=== PATIENT | female | born 2000 | race Caucasian/White ===

== ENCOUNTER 2022-06-14 19:03 | Emergency (ER) | payer BC, SELFPAY ==
--- NOTE | ~2022-06-14 | CT_ITS ---
EXAMINATION: CT CERVICAL SPINE WITHOUT CONTRAST CLINICAL INFORMATION: Midline tenderness status post dancing injury COMPARISON: None available. TECHNIQUE: Noncontrast CT of the cervical spine was performed. Multiplanar reformations were generated and reviewed. This CT examination was performed using dose optimization techniques as appropriate, variously including the following: *Automated exposure control *Adjustment of mA and/or kV according to patient size (this includes techniques or standardized protocols for targeted exams where dose is matched to indication/reason for exam; i.e. extremities or head) *Use of iterative reconstruction technique DLP: 263 mGy-cm FINDINGS: Normal vertebral body heights. No evidence of acute fracture. Cervical straightening which may be related to positioning/muscle spasm. No significant spondylolisthesis. Normal alignment at the craniocervical junction. No suspicious lytic or sclerotic osseous lesion. No prevertebral soft tissue swelling or edema. The visualized cervical soft tissues are within normal limits. The lung apices are clear. CT/CT cervical spine wo IV con IMPRESSION: No acute fracture or traumatic malalignment of the cervical spine.
[2022-06-14 19:34] VITALS: BP 121/78; PULSE 97; RESP 16; TEMP 36.6; O2SAT 98
--- NOTE | 2022-06-14 19:37 | ED_ITS ---
HPI - Neck Pain/Injury General Chief Complaint: Neck Pain/Injury <FRANCE Neville Last Filed: 06/14/22 19:39> Stated Complaint: neck inj <FRANCE Neville Last Filed: 06/14/22 19:39> Time Seen by Provider: 06/14/22 21:41 <FRANCE Neville Last Filed: 06/14/22 19:39> Source: patient <FRANCE Talley Last Filed: 06/14/22 22:44> Mode of arrival: ambulatory <FRANCE Talley Last Filed: 06/14/22 22:44> Limitations: no limitations <FRANCE Talley Last Filed: 06/14/22 22:44> History of Present Illness HPI Narrative: This is a 21-year-old female without significant medical history presenting to the emergency department for evaluation of midline cervical spine neck pain, patient reports this started earlier today around 5 pmat dance. Patient tells me she was dancing, suddenly moved her head to 1 side, she heard a weird noise in her neck and since then she has been feeling like she has a stiff neck and is having pain to the middle/spinal region, pain is worse with movement better at rest. Some a/c nausea No blunt trauma. Patient denies numbness, tingling, headache, vision changes, dizziness, weakness. <FRANCE Talley Last Filed: 06/14/22 22:44> Related Data Home Medications: Previous Rx's Medication Instructions Recorded cyclobenzaprine 10 mg tablet 10 mg PO BEDTIME PRN muscle spasm 06/14/22 #7 tabs ketorolac 10 mg tablet 10 mg PO TID PRN pain 5 days #15 06/14/22 tabs lidocaine 5 % topical patch 1 patch topical DAILY PRN pain #15 06/14/22 ea <FRANCE Neville Last Filed: 06/14/22 19:39> Allergies/Adverse Reactions: Allergies Allergy/AdvReac Type Severity Reaction Status Date / Time No Known Allergies Allergy Verified 06/14/22 19:38 <FRANCE Neville Last Filed: 06/14/22 19:39> Review of Systems Review of Systems: Constitutional : No Weight loss, No Fever, No Chills, No Fatigue, No Malaise ENT/Mouth : No sore throat, No Rhinorrhea Eyes: No Eye Pain, No Swelling, No Redness Cardiovascular : No Chest Pain, No SOB, No Dyspnea on Exertion, No Orthopnea, No Edema, No Palpitations Respiratory : No Cough, No Sputum, No Wheezing Gastrointestinal : + Nausea, No Vomiting, No Diarrhea, No Constipation, No abdominal Pain, No Hematochezia, No Melena Genitourinary : No Dysuria, No Urinary Frequency, No Hematuria, Musculoskeletal : No joint pain, No Myalgias, No Joint Swelling, + neck pain Skin : No Skin Lesions, No rash Neuro : No Weakness, No Numbness, No Dizziness, No Headache Psych : No Anxiety/Panic, No Depression All other systems reviewed and are negative <FRANCE Talley - Last Filed: 06/14/22 22:44> Yes all other systems are reviewed and are negative <FRANCE Talley - Last Filed: 06/14/22 22:44> [facility] Past Medical History Attestation statement: The following information was validated with the patient. <FRANCE Talley - Last Filed: 06/14/22 22:44> Source: old records reviewed and nursing notes reviewed <FRANCE Talley - Last Filed: 06/14/22 22:44> Social History Social History: Social History Advance Directives: No Advance Directives Information Provided: Yes <FRANCE Neville - Last Filed: 06/14/22 19:39> Physical Exam Vital Signs: Vital Signs: Last Vital Signs Temp 98.2 F 06/14/22 21:34 Pulse 81 06/14/22 21:34 Resp 17 06/14/22 21:34 BP 115/71 06/14/22 21:34 Pulse Ox 97 06/14/22 21:34 O2 Del Method Room Air 06/14/22 21:34 BMI result Body Mass Index 20.0 <FRANCE Neville - Last Filed: 06/14/22 19:39> Vital Signs: Last Vital Signs Temp 98.2 F 06/14/22 21:34 Pulse 81 06/14/22 21:34 Resp 17 06/14/22 21:34 BP 115/71 06/14/22 21:34 Pulse Ox 97 06/14/22 21:34 O2 Del Method Room Air 06/14/22 21:34 BMI result Body Mass Index 20.0 Vital signs stable <FRANCE Talley - Last Filed: 06/14/22 22:44> Appearance: Alert.? Oriented X3.? No acute distress.? Head: Normocephalic, atraumatic, no step-offs or deformities Eyes: Pupils equal, round and reactive to light.? Extraocular movements intact and pain-free ENT: Pharynx normal.? Neck: Normal inspection.? Patient reports discomfort with palpation around C6, C7 between spinous process. Some associated paraspinous tenderness in the cervical region bilaterally. Pain with range of motion of neck. Patient tells me it feels like she has stiff neck CVS: Normal heart rate and rhythm.? Pulses normal.? Respiratory: No respiratory distress.? Breath sounds normal.? Abdomen: Soft and nontender.? Skin: Skin warm and dry.? Normal skin color.? Normal skin turgor.? Extremities: No lower extremity edema.? No calf ttp. 5/5 strength to bilateral upper and lower extremities Neuro: Oriented X 3.? No motor deficit.? No sensory deficit. CN 2-12 intact . Normal hand mental health assistant bilaterally. Negative pronator drift. Normal sensation to bilateral upper extremities. Ambulatory with steady gait. Normal rapid alternating movements. <FRANCE Talley - Last Filed: 06/14/22 22:44> Course Course Course Narrative: RME - 21 yo otherwise healthy female presents to the ER for evaluation of a neck injury while at a dance class at about 5pm. She was dancing when she heard a pop in her cerivcal spine and had immediate pain. She has pain with any movement now and is nauseated. No radiation of pain. Has tenderness to C6-C7. Will get CT scan cerivcal spine. <FRANCE Neville - Last Filed: 06/14/22 19:39> Reevaluation(s) Reevaluation #1: CT of the cervical spine with no acute fracture or traumatic malalignment of the cervical spine. Will medicate with Toradol, cyclobenzaprine and Lidoderm patch. <FRANCE Talley - Last Filed: 06/14/22 22:44> Time: 22:04 <FRANCE Talley - Last Filed: 06/14/22 22:44> Reevaluation #2: Patient feeling slightly better will be discharged home with medications. Gave her a phone number to [facility]. Educated patient on diagnosis and treatment plan, answered all question, patient verbalizes understanding. At this time patient will be discharged home, advised to return with new or worsening symptoms. Educated on worrisome signs and symptoms and when to return. At this time I feel comfortable discharge home. <FRANCE Talley - Last Filed: 06/14/22 22:44> Time: 22:43 <FRANCE Talley - Last Filed: 06/14/22 22:44> Medications Administered Discontinued Medications Generic Name Dose Route Start Last Admin Trade Name Freq PRN Reason Stop Dose Admin Cyclobenzaprine HCl 10 mg 06/14/22 21:53 06/14/22 22:22 Cyclobenzaprine Hcl 10 Mg Tablet PO 06/14/22 21:54 10 mg ONCE ONE Administration Ketorolac Tromethamine 30 mg 06/14/22 21:53 06/14/22 22:22 Ketorolac Tromethamine 15 Mg/Ml Vial IM 06/14/22 21:54 30 mg ONCE ONE Administration Lidocaine 1 patch 06/14/22 21:53 06/14/22 22:22 Lidocaine 4 % Patch Adh..Patch TRANSDERMA 06/14/22 21:54 1 patch ONCE ONE Administration Protocol Morphine Sulfate 15 mg 06/14/22 22:06 06/14/22 22:22 Morphine Sulfate Immed Release 15 Mg Tablet PO 06/14/22 22:07 15 mg ONCE ONE Administration Ondansetron HCl 4 mg 06/14/22 22:19 06/14/22 22:21 Ondansetron Odt 4 Mg Tab.Rapdis TRANSLINGU 06/14/22 22:20 4 mg ONCE ONE Administration <FRANCE Neville - Last Filed: 06/14/22 19:39> Medications Administered Discontinued Medications Generic Name Dose Route Start Last Admin Trade Name Freq PRN Reason Stop Dose Admin Cyclobenzaprine HCl 10 mg 06/14/22 21:53 06/14/22 22:22 Cyclobenzaprine Hcl 10 Mg Tablet PO 06/14/22 21:54 10 mg ONCE ONE Administration Ketorolac Tromethamine 30 mg 06/14/22 21:53 06/14/22 22:22 Ketorolac Tromethamine 15 Mg/Ml Vial IM 06/14/22 21:54 30 mg ONCE ONE Administration Lidocaine 1 patch 06/14/22 21:53 06/14/22 22:22 Lidocaine 4 % Patch Adh..Patch TRANSDERMA 06/14/22 21:54 1 patch ONCE ONE Administration Protocol Morphine Sulfate 15 mg 06/14/22 22:06 06/14/22 22:22 Morphine Sulfate Immed Release 15 Mg Tablet PO 06/14/22 22:07 15 mg ONCE ONE Administration Ondansetron HCl 4 mg 06/14/22 22:19 06/14/22 22:21 Ondansetron Odt 4 Mg Tab.Rapdis TRANSLINGU 06/14/22 22:20 4 mg ONCE ONE Administration <FRANCE Talley - Last Filed: 06/14/22 22:44> Medical Decision Making Medical Decision Making [facility] Narrative: 2200 21-year-old female presents with neck pain status post sudden movement during dance. Physical exam significant for Normal inspection.? Patient reports discomfort with palpation around C6, C7 between spinous process. Some associated paraspinous tenderness in the cervical region bilaterally. Pain with range of motion of neck. Patient tells me it feels like she has stiff neck Concerns for torticollis, cervical sprain/strain, cervical spasm. Unlikely acute fracture, dislocation no blunt trauma. Other differentials include herniated discs. No signs of cord compression. CT scan was obtained from triage. <FRANCE Talley Last Filed: 06/14/22 22:44> Differential Diagnosis Differential Diagnoses: The differential diagnosis associated with the presentation includes <FRANCE Talley Last Filed: 06/14/22 22:44> Concerns for torticollis, cervical sprain/strain, cervical spasm. Unlikely acute fracture, dislocation no blunt trauma. Other differentials include herniated discs. No signs of cord compression. <FRANCE Talley Last Filed: 06/14/22 22:44> Admission/Observation Consideration of admission/observation: Escalation of care including admission/observation considered <FRANCE Talley Last Filed: 06/14/22 22:44> Unlikely <FRANCE Talley - Last Filed: 06/14/22 22:44> Independent Interpretation I performed an independent interpretation of an: CT Scan (CT/CT cervical spine wo IV con IMPRESSION: No acute fracture or traumatic malalignment of the cervical spine. ) <FRANCE Talley - Last Filed: 06/14/22 22:44> Prescription Management I considered prescription management with: Pain Medication (Toradol) and Other (Cyclobenzaprine) <FRANCE Talley - Last Filed: 06/14/22 22:44> Core Measures AMI core measures followed: Yes <FRANCE Talley - Last Filed: 06/14/22 22:44> Measure exclusions: not indicated <FRANCE Talley Last Filed: 06/14/22 22:44> Critical Care Time Critical Care Time Critical Care Time: No <FRANCE Talley - Last Filed: 06/14/22 22:44> Discharge Plan Discharge Clinical Impression: Strain of neck muscle, Neck pain <FRANCE Neville - Last Filed: 06/14/22 19:39> Patient Disposition: Home, Self-Care <FRANCE Neville Last Filed: 06/14/22 19:39> Instructions: Muscle Strain (ED), Neck Pain (ED) <FRANCE Neville Last Filed: 06/14/22 19:39> Additional Instructions: Take your medications as prescribed. If you were prescribed antibiotics today, it is important that you take your medication to their entirety, do not skip any doses, do not finish them early. Follow-up with your primary care provider this week. Return to the emergency department with new or worsening symptoms. Such as fevers, chills, chest pain, shortness of breath, nausea, vomiting, dizziness, headache, vision changes, lethargy, visual disturbances, numbness, tingling, hand weakness In case of emergency call 911 Toradol has been sent to your pharmacy, you tolerated this well in the department. Please take this as prescribed do not take this with ibuprofen, or other NSAIDs, do not mix this with alcohol. Side effects of this medication including increased risk for bleeding and possible kidney injury. ?CT/CT cervical spine wo IV con IMPRESSION: ? No acute fracture or traumatic malalignment of the cervical spine. ? <FRANCE Neville - Last Filed: 06/14/22 19:39> Prescriptions: New cyclobenzaprine 10 mg tablet 10 mg PO BEDTIME PRN (Reason: muscle spasm) Qty: 7 0RF ketorolac 10 mg tablet 10 mg PO TID PRN (Reason: pain) 5 Days Qty: 15 0RF lidocaine 5 % adhesive patch,medicated 1 patch topical DAILY PRN (Reason: pain) Qty: 15 0RF Rx Instructions: leave on most painful area for up to 12 hrs <FRANCE Neville - Last Filed: 06/14/22 19:39> Referrals: [facility] [Provider Group] - 1 day Physician,Unknown J [Primary Care Provider] - 2 days <FRANCE Neville - Last Filed: 06/14/22 19:39> Stand Alone Forms: Work/School Release <FRANCE Neville - Last Filed: 06/14/22 19:39>
[2022-06-14 21:34] VITALS: BP 115/71; PULSE 81; RESP 17; TEMP 36.8; O2SAT 97
--- OUTSIDE RECORDS SUMMARY | 2022-06-14 22:07 | XMS_ITS | Summary of Care ---
Author Name Unknown Organization [facility] Address [address] [place] [address] Care Team Providers Care Creative Writing English Professor Name Role Phone TRACY FITZGERALD DO, I Primary Care Physician Encounter [facility]CSN [id number] Date(s): 06/29/20 - 06/29/20 [facility] [address] [place] [address] Encounter Diagnosis Pain in right hip(Final) - Pain in left hip(Final) - Discharge Disposition: Home Attending Physician: ANN FORRESTER MD Referring Physician: TRACY FTIZGERALD DO, I Allergies, Adverse Reactions, Alerts No Known Medication Allergies
--- OUTSIDE RECORDS SUMMARY | 2022-06-14 22:07 | XMS_ITS | Summary of Care ---
Author Name Unknown Organization [facility] Address [address] [place] [address]- Care Team Providers Care Revenue Liaison Name Role Phone KEM VALADEZ MD Primary Care Physician [phone] Encounter [facility]_CSN [id number] Date(s): 10/25/21 - 10/25/21 [facility] [address] [place] [address]- Discharge Disposition: Discharge Attending Physician: JOHAN AGUAYO PA-C Referring Physician: KEM VALADEZ MD Allergies, Adverse Reactions, Alerts No Known Medication Allergies Substance Reaction Severity Status Animal Dander Pruritis Nasal congestion Watery eyes Active Problem List Condition Effective Dates Status Health Status Inform ant Developmental dysplasia of r ight hip(Confirmed) Active Femoroacetabular impingement(Confirmed) Active
--- OUTSIDE RECORDS SUMMARY | 2022-06-14 22:07 | XMS_ITS | Summary of Care ---
Author Name Unknown Organization [facility] Address [address] [place] [address] Care Team Providers Care Chain Hooker Name Role Phone TRACY FITZGERALD DO, I Primary Care Physician ( [phone] Encounter [facility]_CSN [id number] Date(s): 05/20/20 - 05/20/20 [facility] [address] [place] [address] [facility] Encounter Diagnosis Pain in right hip(Final) - Pain in left hip(Final) - Discharge Disposition: Discharge Attending Physician: CALI DUENAS, KEM José Referring Physician: TRACY FITZGERALD DO, I Allergies, Adverse Reactions, Alerts No Known Medication Allergies
--- OUTSIDE RECORDS SUMMARY | 2022-06-14 22:07 | XMS_ITS | Summary of Care ---
Author Name Unknown Organization [facility] Address [address] [place] [address]- Care Team Providers Care User Experience Designer Name Role Phone TRACY FITZGERALD DO, I Primary Care Physician Encounter [facility] [id number] Date(s): 07/21/20 - 07/21/[address] [address]- Encounter Diagnosis Pain in right hip(Final) - Pain in left hip(Final) - Discharge Disposition: Home Attending Physician: MITZY DUENAS, ANN Randall Referring Physician: TRACY FITZGERALD DO, I Allergies, Adverse Reactions, Alerts No Known Medication Allergies Medications LORazepam 1 mg oral tablet Dose: 1 mg, Dose Amount: 1 tab, PO, 1time, Special Instructions: please take 1 tab prior to MRI andbring other tab to take as needed for anxiety, Dispense Quantity: 2 tab, Entered: 07/21/20 11:45:00EDT, [id number] Start Date: 07/21/20 Status: Ordered
--- OUTSIDE RECORDS SUMMARY | 2022-06-14 22:07 | XMS_ITS | Summary of Care ---
Author Name Unknown Organization [facility] Address [address] [place] [address]- Care Team Providers Care Cyber Systems Engineer Name Role Phone KEM VALADEZ MD Primary Care Physician Encounter [facility]_CSN [id number] Date(s): 05/18/21 - 05/18/[address] [address]- Encounter Diagnosis Other specified congenital deformities of hip(Final) - Pain in right hip(Final) - Pain in left hip(Final) - Other specified joint disorders, right hip(Final) - Discharge Disposition: Discharge Attending Physician: NATE MCCRACKEN MD Referring Physician: KEM VALADEZ MD Allergies, Adverse Reactions, Alerts No Known Medication Allergies Problem List Condition Effective Dates Status Health Status Inform ant Developmental dysplasia of r ight hip(Confirmed) Active Femoroacetabular impingement(Confirmed) Active
--- OUTSIDE RECORDS SUMMARY | 2022-06-14 22:08 | XMS_ITS | Summary of Care ---
Author Name Unknown Organization [facility] Address [address] [place] [address]- Care Team Providers Care Search Engine Marketing Strategist Name Role Phone KEM VALADEZ MD Primary Care Physician [phone] Encounter [facility] [id number] Date(s): 03/20/21 - 03/20/21 [facility] [address] [address]- Discharge Disposition: Discharge Attending Physician: JOHAN AGUAYO PA-C Referring Physician: KEM VALADEZ MD Allergies, Adverse Reactions, Alerts No Known Medication Allergies Medications triamcinolone 0.1% topical ointment Dose Amount: 1 appl, TOP, BID, Special Instructions: apply prn to affected areas (max use 2 week each month), Dispense Quantity: 15 g, Entered: 03/15/21 14:32:00 [id number] Start Date: 03/15/21 Status: Ordered Problem List Condition Effective Dates Status Health Status Inform ant Developmental dysplasia of r ight hip(Confirmed) Active Femoroacetabular impingement(Confirmed) Active
--- OUTSIDE RECORDS SUMMARY | 2022-06-14 22:08 | XMS_ITS | Summary of Care ---
Author Name Unknown Organization [facility] Address [address] [place] [address]- Care Team Providers Care Family Law Mediator Name Role Phone KEM VALADEZ MD Primary Care Physician Encounter [facility]_CSN [id number] Date(s): 11/10/21 - 11/10/[address] [address]- Discharge Disposition: Discharge Attending Physician: JOSSELINE BEEBE RD Referring Physician: KEM VALADEZ MD Allergies, Adverse Reactions, Alerts No Known Medication Allergies Substance Reaction Severity Status Animal Dander Pruritis Nasal congestion Watery eyes Active Problem List Condition Effective Dates Status Health Status Inform ant Developmental dysplasia of r ight hip(Confirmed) Active Femoroacetabular impingement(Confirmed) Active
--- OUTSIDE RECORDS SUMMARY | 2022-06-14 22:08 | XMS_ITS | Summary of Care ---
Author Name Unknown Organization [facility] Address [address] [place] [address]- Care Team Providers Care Cook Soup Name Role Phone TRACY FITZGERALD DO, I Primary Care Physician Encounter [facility]_CSN [id number] Date(s): 07/21/20 - 07/21/[address] [address]- Encounter Diagnosis Pain in right hip(Final) - Pain in left hip(Final) - Discharge Disposition: Home Attending Physician: CALI DUENAS, KEM José Referring Physician: TRACY FITZGERALD DO, I Allergies, Adverse Reactions, Alerts No Known Medication Allergies
--- OUTSIDE RECORDS SUMMARY | 2022-06-14 22:08 | XMS_ITS | Summary of Care ---
Author Name Unknown Organization [facility] Address [address] [place] [address]- Care Team Providers Care Packaging Associate Name Role Phone KEM VALADEZ MD Primary Care Physician Encounter [facility]_CSN [id number] Date(s): 01/29/22 - 01/29/[address] [address]- Discharge Disposition: Discharge Attending Physician: NATE MCCRACKEN MD Referring Physician: KEM VALADEZ MD Allergies, Adverse Reactions, Alerts No Known Medication Allergies Substance Reaction Severity Status Animal Dander Pruritis Nasal congestion Watery eyes Active Problem List Condition Effective Dates Status Health Status Inform ant Developmental dysplasia of r ight hip(Confirmed) Active Femoroacetabular impingement(Confirmed) Active
--- OUTSIDE RECORDS SUMMARY | 2022-06-14 22:08 | XMS_ITS | Summary of Care ---
Author Name Unknown Organization [facility] Address [address] [place] [address]- Care Team Providers Care Telephone Services Sales Representative Name Role Phone TRACY FITZGERALD DO, I Primary Care Physician Encounter [facility]N [id number] Date(s): 08/22/20 - 08/22/[address] [address]- Discharge Disposition: Discharge Attending Physician: MAINE DUENAS, PhD, SINHALA-ADDI Referring Physician: TRACY FITZGERALD DO, I Allergies, Adverse Reactions, Alerts No Known Medication Allergies
--- OUTSIDE RECORDS SUMMARY | 2022-06-14 22:08 | XMS_ITS | Summary of Care ---
Author Name Unknown Organization [facility] Address [address] [place] [address]- Care Team Providers Care Tribunal Member Name Role Phone TRACY FITZGERALD DO, I Primary Care Physician ( [phone] Encounter [facility]N [id number] Date(s): 10/12/20 - 10/12/20 [facility] [address] [place], [place] [address] Discharge Disposition: Discharge Attending Physician: KAYKAY DUENAS, NATE Johnson Referring Physician: TRACY FITZGERALD DO, I Allergies, Adverse Reactions, Alerts No Known Medication Allergies
--- OUTSIDE RECORDS SUMMARY | 2022-06-14 22:08 | XMS_ITS | Summary of Care ---
Author Name Unknown Organization [facility] Address [address] [address]- Care Team Providers Care Customs Compliance Manager Name Role Phone KEM VALADEZ MD Primary Care Physician Encounter [facility]_CSN [id number] Date(s): 02/21/22 - 01/30/22 [facility] [address] [place] [address]- Attending Physician: NATE MCCRACKEN MD Referring Physician: KEM VALADEZ MD Allergies, Adverse Reactions, Alerts No Known Medication Allergies Substance Reaction Severity Status Animal Dander Pruritis Nasal congestion Watery eyes Active Problem List Condition Effective Dates Status Health Status Inform ant Developmental dysplasia of r ight hip(Confirmed) Active Femoroacetabular impingement(Confirmed) Active
--- OUTSIDE RECORDS SUMMARY | 2022-06-14 22:08 | XMS_ITS | Summary of Care ---
Author Name Unknown Organization [facility] Address [address] [place] [address] Care Team Providers Care Tandem Operator Name Role Phone ROYR DUENAS, KEM Moreno Primary Care Physician Encounter [facility]_CSN [id number] Date(s): 11/04/20 - 11/04/20 [facility] [address] [place] [address]- Encounter Diagnosis Psychological and behavioral factors associated with disorders or diseases classified elsewhere(Final) - Major depressive disorder, single episode, moderate(Final) - Other specified anxiety disorders(Final) - Discharge Disposition: Home Attending Physician: VIOLETA MONTES MD Referring Physician: TRACY FITZGERALD DO, I Allergies, Adverse Reactions, Alerts No Known Medication Allergies Medications amitriptyline 10 mg oral tablet Dose: 10 mg, Dose Amount: 1 tab, PO, bedtime, Special Instructions: Take 30-60 minutes before bedtime, Dispense Quantity: 30 tab, Refills: 2, Entered: 11/04/20 17:16:00 EDT, [id number] Start Date: 11/04/20 Status: Ordered lidocaine 4% topical cream See Instructions, Special Instructions: TOP TID not to exceed 3 applications in 24 hours, Dispense Quantity: 30 g, Refills: 1, Entered: 11/04/20 17:16:00 EDT, Stop: 11/03/21 17:17:00 EDT, [id number] Start Date: 11/04/20 Stop Date: 11/03/21 Status: Ordered
--- OUTSIDE RECORDS SUMMARY | 2022-06-14 22:08 | XMS_ITS | Summary of Care ---
Author Name Unknown Organization [facility] Address [address] [place] [address]- Care Team Providers Care Digital Measurement Advisor Name Role Phone RORY DUENAS, KEM Moreno Primary Care Physician [phone] Encounter [facility]N [id number] Date(s): 02/22/21 - 02/22/[address] [address]- Discharge Disposition: Discharge Attending Physician: NON SPECIFIED , LAB PROVIDER Referring Physician: NATE MCCRACKEN MD Allergies, Adverse Reactions, Alerts No Known Medication Allergies
--- OUTSIDE RECORDS SUMMARY | 2022-06-14 22:08 | XMS_ITS | Summary of Care ---
Author Name Unknown Organization [facility] spital Address [address] [place] [address]- Care Team Providers Care Meter Reader Chief Name Role Phone RORY DUENAS, KEM Moreno Primary Care Physician Encounter [facility]_CSN [id number] Date(s): 02/22/21 - 02/22/[address] [address]- Discharge Disposition: Discharge Attending Physician: ROBERT PALM DO Referring Physician: NATE MCCRACKEN MD Allergies, Adverse Reactions, Alerts No Known Medication Allergies Medications acetaminophen PRN Pain: Anticip/Mild/Mod (Score 0-6), Entered: 02/22/21 12:01:00 EST Start Date: 02/22/21 Status: Ordered Biotin supplement Biotin supplement, Entered: 02/22/21 12:01:00 EST Start Date: 02/22/21 Status: Ordered Ventolin HFA 90 mcg/inh inhalation aerosol Dose Amount: 2 puff, INH, Q4hr, PRN Wheezing, Dispense Quantity: 1 EA, Entered: 02/22/21 12:11:00 EST Start Date: 02/22/21 Status: Ordered
--- OUTSIDE RECORDS SUMMARY | 2022-06-14 22:08 | XMS_ITS | Summary of Care ---
Author Name Unknown Organization [facility] spital Address [address] [place] [address]- Care Team Providers Care Transportation Planning Engineer Name Role Phone TRACY FITZGERALD DO, I Primary Care Physician Encounter [facility]_CSN [id number] Date(s): 08/24/20 - 08/24/[address] [address]- Discharge Disposition: Discharge Attending Physician: JOVAN ANGEL PA-C Referring Physician: JOVAN ANGEL PA-C Allergies, Adverse Reactions, Alerts No Known Medication Allergies
--- OUTSIDE RECORDS SUMMARY | 2022-06-14 22:08 | XMS_ITS | Summary of Care ---
Author Name Unknown Organization [facility] sp[facility] Address [address] [place] [address]- Care Team Providers Care Tarp Repairer Name Role Phone TRACY FITZGERALD DO, I Primary Care Physician Encounter [facility]_CSN [id number] Date(s): 08/04/20 - 08/04/[address] [address]- Encounter Diagnosis Pain in right hip(Final) - Pain in left hip(Final) - Discharge Disposition: Home Attending Physician: CALI DUENAS, KEM José Referring Physician: TRACY FITZGERALD DO, I Allergies, Adverse Reactions, Alerts No Known Medication Allergies
--- OUTSIDE RECORDS SUMMARY | 2022-06-14 22:08 | XMS_ITS | Summary of Care ---
Author Name Unknown Organization [facility] sp[facility] Address [address] [place] [address]- Care Team Providers Care Director Of Professional Services Name Role Phone TRACY FITZGERALD DO, I Primary Care Physician Encounter [facility]_CSN [id number] Date(s): 05/26/20 - 05/26/[address] [address]- Encounter Diagnosis Psoas tendinitis, right hip(Final) - Psoas tendinitis, left hip(Final) - Pain in right hip(Final) - Pain in left hip(Final) - Discharge Disposition: Home Attending Physician: CALI DUENAS, KEM José Referring Physician: TRACY FITZGERALD DO, I Allergies, Adverse Reactions, Alerts No Known Medication Allergies
--- OUTSIDE RECORDS SUMMARY | 2022-06-14 22:08 | XMS_ITS | Summary of Care ---
Author Name Unknown Organization [facility] sp[facility] Address [address] [place] [address]- Care Team Providers Care Ratings Analyst Name Role Phone TRACY FITZGERALD DO, I Primary Care Physician Encounter [facility]_CSN [id number] Date(s): 08/04/20 - 08/02/[address] [address]- Attending Physician: CALI DUENAS, KEM José Referring Physician: TRACY FITZGERALD DO, I Allergies, Adverse Reactions, Alerts No Known Medication Allergies Medications meloxicam 7.5 mg oral tablet Dose: 7.5 mg, Dose Amount: 1 tab, PO, daily, Dispense Quantity: 30 tab, Refills: 1, Entered: 07/14/20 18:30:00 EDT, [id number] Start Date: 07/14/20 Status: Ordered
--- OUTSIDE RECORDS SUMMARY | 2022-06-14 22:08 | XMS_ITS | Summary of Care ---
Author Name Unknown Organization [facility] Address [address] [facility] [place] [address]- Care Team Providers Care Lost Charge Card Clerk Name Role Phone KEM VALADEZ MD Primary Care Physician Encounter [facility]CSN [id number] Date(s): 08/14/21 - 08/14/21 [facility] [address] [facility] [place] [address]- Discharge Disposition: Discharge Attending Physician: JOHAN AGUAYO PA-C Referring Physician: KEM VALADEZ MD Allergies, Adverse Reactions, Alerts No Known Medication Allergies Substance Reaction Severity Status Animal Dander Pruritis Nasal congestion Watery eyes Active Problem List Condition Effective Dates Status Health Status Inform ant Developmental dysplasia of r ight hip(Confirmed) Active Femoroacetabular impingement(Confirmed) Active
--- OUTSIDE RECORDS SUMMARY | 2022-06-14 22:08 | XMS_ITS | Summary of Care ---
Author Name Unknown Organization [facility] sp[facility] Address [address] [place] [address]- Care Team Providers Care Card Assembler Name Role Phone TRACY FITZGERALD DO, I Primary Care Physician ( [phone] Encounter [facility]_CSN [id number] Date(s): 08/22/20 - 08/22/[address] [address]- Discharge Disposition: Discharge Attending Physician: MAINE DUENAS, PhD, [facility] Referring Physician: TRACY FITZGERALD DO, I Allergies, Adverse Reactions, Alerts No Known Medication Allergies Medications No Known Medications
--- OUTSIDE RECORDS SUMMARY | 2022-06-14 22:08 | XMS_ITS | Summary of Care ---
Author Name Unknown Organization [facility] spital Address [address] [place] [address]- Care Team Providers Care Sports Book Server Name Role Phone RORY DUENAS, KEM Moreno Primary Care Physician [phone] Encounter [facility]_CSN [id number] Date(s): 02/23/21 - 02/27/[address] [address]- Encounter Diagnosis Developmental dysplasia of right hip(Discharge Diagnosis) - 02/24/21 Femoroacetabular impingement(Discharge Diagnosis) - 02/24/21 Acetabular labrum tear(Discharge Diagnosis) - 02/24/21 Discharge Disposition: Home Attending Physician: NATE MCCRACKEN MD Admitting Physician: NATE MCCRACKEN MD Referring Physician: TRACY FITZGERALD DO, I Allergies, Adverse Reactions, Alerts No Known Medication Allergies Medications acetaminophen 500 mg oral tablet Dose: 500 mg, Dose Amount: 1 tab, PO, Q4hr, PRN Pain: Anticip/Mild/Mod (Score 0- 6), Dispense Quantity: 50 tab, Entered: 02/26/21 8:57:00 EST, Stop: 03/30/21 9:00:00 EST, [id number] Start Date: 02/26/21 Stop Date: 03/30/21 Status: Ordered aspirin 81 mg oral tablet, chewable Dose: 81 mg, Dose Amount: 1 tab, PO, daily, Dispense Quantity: 30 tab, Refills: 0, Entered: 02/26/21 8:58:00 EST, [id number] Start Date: 02/26/21 Status: Ordered Commode-3 in 1 Commode-3 in 1 Special Instructions: Height: 179cm Weight: 58 kg Length of need:__X__Lifetime Weight bearing status:___NWB on affected hip Diagnosis: Hip Dysplasia (Q65.89) s/p SHANAE Dispense Quantity:1 EA Re... Start Date: 02/20/21 Stop Date: 02/28/21 Status: Ordered diazePAM 5 mg oral tablet Dose: 2.5 mg, Dose Amount: 0.5 tab, PO, Q6hr, PRN Spasm, Dispense Quantity: 7 tab, Entered: 02/26/21 8:58:00 EST, Stop: 03/30/21 9:00:00 EST, [facility][id number] Start Date: 02/26/21 Stop Date: 03/30/21 Status: Ordered manual wheelchair with elevating leg rests manual wheelchair with elevating leg rests Special Instructions: Height: 178.6 cm Weight: 57.9kg Length of need: 12 months Rx Indication: b/l hip pain, dysplasia Dispense Quantity: 1 EA See Instructions Start Date: 11/16/20 Status: Ordered naproxen 250 mg oral tablet Dose: 500 mg, Dose Amount: 2 tab, PO, Q12hr, Take for 30 day, Dispense Quantity: 120 tab, Refills: 0, Entered: 02/26/21 8:58:00 EST, Stop: 03/28/21 8:58:00 EST, [id number] Start Date: 02/26/21 Stop Date: 03/28/21 Status: Ordered oxyCODONE 5 mg oral tablet Dose: 7.5 mg, Dose Amount: 1.5 tab, PO, Q4hr, PRN Pain: Moderate/Severe (Score 4-10), Dispense Quantity: 45 tab, Refills: 0, Entered: 02/26/21 8:58:00 EST, Stop: 03/30/21 9:00:00 EST, [facility][id number] Start Date: 02/26/21 Stop Date: 03/30/21 Status: Ordered polyethylene glycol 3350 oral powder for reconstitution Dose Amount: 1 capful, PO, daily, Special Instructions: Mix in 8 ounces of water Please take while using narctoic pain medication to prevent constipation, Dispense Quantity: 527 g, Entered: 02/26/21 8:58:00 EST, Indication: constipation for pts > 30... Start Date: 02/26/21 Status: Ordered PriLOSEC OTC 20 mg oral delayed release tablet Dose: 20 mg, Dose Amount: 1 tab, PO, daily, Dispense Quantity: 30 tab, Refills: 0, Entered: 02/26/21 8:58:00 EST, [facility]/pharmacy #[id number] Start Date: 02/26/21 Status: Ordered Rolling Walker Rolling Walker Special Instructions: Height: 179cm Weight: 58 kg Length of need:__X__Lifetime Weight bearing status:___NWB on affected hip Diagnosis: Hip Dysplasia (Q65.89) s/p SHANAE Dispense Quantity:1 EA Re... Start Date: 02/20/21 Stop Date: 02/28/21 Status: Ordered Zoloft 100 mg oral tablet Dose: 100 mg, Dose Amount: 1 tab, PO, daily, Entered: 02/23/21 16:53:00 EST Start Date: 02/23/21 Status: Ordered Problem List Condition Effective Dates Status Health Status Inform ant Developmental dysplasia of r ight hip(Confirmed) Active Femoroacetabular impingement(Confirmed) Active
--- OUTSIDE RECORDS SUMMARY | 2022-06-14 22:08 | XMS_ITS | Summary of Care ---
Author Name Unknown Organization [facility] sp[facility] Address [address] [place] [address]- Care Team Providers Care Position Classification Specialist Name Role Phone RORY DUENAS, KEM Moreno Primary Care Physician [phone] Encounter [facility]_CSN [id number] Date(s): 07/17/21 - 07/17/[address] [address]- Discharge Disposition: Discharge Attending Physician: SANDEEP DUENAS, LUCIA Ortiz Referring Physician: KAYKAY DUENAS, NATE Johnson Allergies, Adverse Reactions, Alerts No Known Medication Allergies Substance Reaction Severity Status Animal Dander Pruritis Nasal congestion Watery eyes Active Medications Iron Iron, PO, daily, Entered: 07/17/21 13:34:00 EDT Start Date: 07/17/21 Status: Ordered Problem List Condition Effective Dates Status Health Status Inform ant Developmental dysplasia of r ight hip(Confirmed) Active Femoroacetabular impingement(Confirmed) Active
--- OUTSIDE RECORDS SUMMARY | 2022-06-14 22:08 | XMS_ITS | Summary of Care ---
Author Name Unknown Organization [facility] Address [address] [place] [address] Care Team Providers Care Cabin Agent Name Role Phone TRACY FITZGERALD DO, I Primary Care Physician Encounter [facility]_CSN [id number] Date(s): 05/10/20 - 05/10/20 [facility] [address] [place] [address] [facility] Encounter Diagnosis Pain in right hip(Final) - Pain in left hip(Final) - Discharge Disposition: Discharge Attending Physician: CALI DUENAS, KEM José Referring Physician: TRACY FITZGERALD DO, I Allergies, Adverse Reactions, Alerts No Known Medication Allergies
--- OUTSIDE RECORDS SUMMARY | 2022-06-14 22:08 | XMS_ITS | Summary of Care ---
Author Name Unknown Organization [facility] spital Address [address] [place] [address]- Care Team Providers Care Typewriter Repairer Name Role Phone TRACY FITZGERALD DO, I Primary Care Physician Encounter [facility]_CSN [id number] Date(s): 09/19/20 - 09/19/[address] [address]- Encounter Diagnosis Pain in right hip(Final) - Pain in left hip(Final) - Discharge Disposition: Discharge Attending Physician: MAINE DUENAS, PhD, [facility] Referring Physician: TRACY FITZGERALD DO, I Allergies, Adverse Reactions, Alerts No Known Medication Allergies
--- OUTSIDE RECORDS SUMMARY | 2022-06-14 22:08 | XMS_ITS | Summary of Care ---
Author Name Unknown Organization [facility] Address [address] [facility] [place] [address]- Care Team Providers Care Aprn Name Role Phone KEM VALADEZ MD Primary Care Physician Encounter [facility]_CSN [id number] Date(s): 02/13/21 - 02/13/21 [facility] [address] [facility] [place] [address]- Discharge Disposition: Discharge Attending Physician: JOHAN AGUAYO PA-C Referring Physician: KEM VALADEZ MD Allergies, Adverse Reactions, Alerts No Known Medication Allergies
--- OUTSIDE RECORDS SUMMARY | 2022-06-14 22:08 | XMS_ITS | Summary of Care ---
Author Name Unknown Organization [facility] Address [address] [facility] [place] [address]- Care Team Providers Care Genetic Technologist Name Role Phone KEM VALADEZ MD Primary Care Physician Encounter [facility]_CSN [id number] Date(s): 03/31/21 - 03/31/21 [facility] [address] [place] [address]- Discharge Disposition: Discharge Attending Physician: VIOLETA MONTES MD Referring Physician: KEM VALADEZ MD Allergies, Adverse Reactions, Alerts No Known Medication Allergies Medications Naprosyn 500 mg oral tablet Dose: 500 mg, Dose Amount: 1 tab, PO, BID, PRN Pain: Moderate/Severe (Score 4- 10), Take for 90 day,Dispense Quantity: 180 tab, Refills: 1, Entered: 03/31/21 10:51:00 EST, Stop: 09/27/21 10:51:00 EDT, [facility]/pharmacy #[id number] Start Date: 03/31/21 Stop Date: 09/27/21 Status: Ordered Problem List Condition Effective Dates Status Health Status Inform ant Developmental dysplasia of r ight hip(Confirmed) Active Femoroacetabular impingement(Confirmed) Active
--- OUTSIDE RECORDS SUMMARY | 2022-06-14 22:08 | XMS_ITS | Summary of Care ---
Author Name Unknown Organization [facility] spital Address [address] [place] [address]- Care Team Providers Care Rural Mail Contractor Name Role Phone KEM VALADEZ MD Primary Care Physician [phone] Encounter [facility]_CSN [id number] Date(s): 05/18/21 - 05/18/[address] [address]- Encounter Diagnosis Other specified congenital deformities of [...]
--- OUTSIDE RECORDS SUMMARY | 2022-06-14 22:08 | XMS_ITS | Summary of Care ---
Author Name Unknown Organization [facility] Address [address] [place] [address]- Care Team Providers Care Material Handler Floorperson Name Role Phone KEM VALADEZ MD Primary Care Physician Encounter [facility]_CSN [id number] Date(s): 12/30/20 - 12/30/20 [facility] [address] [place] [address]- Encounter Diagnosis Other specified congenital deformities of hip(Final) - Chronic pain syndrome(Final) - Pain in right hip(Final) - Pain in left hip(Final) - Discharge Disposition: Discharge Attending Physician: VIOLETA MONTES MD Referring Physician: KEM VALADEZ MD Allergies, Adverse Reactions, Alerts No Known Medication Allergies Medications PriLOSEC OTC 20 mg oral delayed release tablet Dose: 20 mg, Dose Amount: 1 tab, PO, daily, Dispense Quantity: 30 tab, Entered: 12/30/20 10:44:00 EDT Start Date: 12/30/20 Status: Ordered
--- OUTSIDE RECORDS SUMMARY | 2022-06-14 22:09 | XMS_ITS | Summary of Care ---
Author Name Unknown Organization [facility] Address [address] [facility] [place] [address]- Care Team Providers Care Fire Inspector Name Role Phone KEM VALADEZ MD Primary Care Physician Encounter [facility]_CSN [id number] Date(s): 01/10/21 - 01/10/21 [facility] [address] [place] [address]- Encounter Diagnosis Other specified congenital deformities of hip(Final) - Pain in right hip(Final) - Pain in left hip(Final) - Discharge Disposition: Discharge Attending Physician: NATE MCCRACKEN MD Referring Physician: KEM VALADEZ MD Allergies, Adverse Reactions, Alerts No Known Medication Allergies
--- OUTSIDE RECORDS SUMMARY | 2022-06-14 22:09 | XMS_ITS | Summary of Care ---
Author Name Unknown Organization [facility] Address [address] [place] [address]- Care Team Providers Care Fiber Drier Operator Name Role Phone TRACY FITZGERALD DO, I Primary Care Physician Encounter [facility]_CSN [id number] Date(s): 05/16/20 - 05/16/[address] [address]- [facility] Discharge Disposition: Discharge Attending Physician: KEM LEIVA MD Referring Physician: KEM LEIVA MD Allergies, Adverse Reactions, Alerts No Known Medication Allergies
--- OUTSIDE RECORDS SUMMARY | 2022-06-14 22:09 | XMS_ITS | Summary of Care ---
Author Name Unknown Organization [facility] Address [address] [place] [address]- Care Team Providers Care Docking Saw Operator Name Role Phone KEM VALADEZ MD Primary Care Physician [phone] Encounter [facility]_CSN [id number] Date(s): 01/24/21 - 01/24/21 [facility] [address] [place] [address]- Discharge Disposition: Discharge Attending Physician: MARTELL GARRISON MD Referring Physician: KEM VALADEZ MD Allergies, Adverse Reactions, Alerts No Known Medication Allergies Medications Zoloft 50 mg oral tablet Dose: 50 mg, Dose Amount: 1 tab, PO, daily, Entered: 01/24/21 12:49:00 EST Start Date: 01/24/21 Status: Ordered ZyrTEC Dose: 10 mg, daily, Entered: 01/24/21 12:52:00 EST Start Date: 01/24/21 Status: Ordered
--- OUTSIDE RECORDS SUMMARY | 2022-06-14 22:09 | XMS_ITS | Summary of Care ---
Author Name Unknown Organization [facility] Address [address] [place] [address]- Care Team Providers Care Movie Operator Name Role Phone TRACY FITZGERALD DO, I Primary Care Physician ( [phone] Encounter [facility]_CSN [id number] Date(s): 05/23/20 - 05/23/[address] [address]- [facility] Encounter Diagnosis Psoas tendinitis, right hip(Final) - Psoas tendinitis, left hip(Final) - Discharge Disposition: Discharge Attending Physician: ANN FORRESTER MD Referring Physician: TRACY FITZGERALD DO, I Allergies, Adverse Reactions, Alerts No Known Medication Allergies Medications Control Control Start Date: 05/23/20 Status: Ordered levothyroxine daily, Entered: 05/23/20 10:43:00 EDT Start Date: 05/23/20 Status: Ordered Multi Vitamin+ Entered: 05/23/20 10:43:00 EDT Start Date: 05/23/20 Status: Ordered
[2022-06-14] MEDS: Ondansetron ODT 4 MG TAB.RAPDIS TRANSLINGU (22:21)
[2022-06-14] MEDS: Lidocaine 4 % Patch ADH..PATCH 1 PATCH TRANSDERMA (22:22)
[2022-06-14] MEDS: Morphine Sulfate Immed Release 15 MG TABLET PO (22:22)
[2022-06-14] MEDS: Cyclobenzaprine HCl 10 MG TABLET PO (22:22)
[2022-06-14] MEDS: Ketorolac Tromethamine 15 MG/ML VIAL 30 MG IM (22:22)
== END 2022-06-14 23:11 | disposition home or self-care (01) ==
PROVIDERS: Emergency Provider Emergency Medicine
DX: M54.2 Cervicalgia (principal); Z79.899 Other long term (current) drug therapy
CPT/HCPCS: 72125; 96372; 99284; J1885